=== PATIENT | female | born 1980 | race Caucasian/White ===

== ENCOUNTER 2018-02-05 17:23 | Emergency (ER) | payer SELFPAY ==
[~2018-02-05] VITALS: Ht 165.1 cm; Wt 59.0 kg
[2018-02-05 17:41] VITALS: BP 128/85
[2018-02-05 17:54] LABS: APPEARANCE,URINE CLEAR; BILIRUBIN, URINE NEGATIVE (NEGATIVE); COLOR,URINE PALE YELLOW; GLUCOSE, URINE (UA) NEGATIVE (NEGATIVE); KETONES,URINE NEGATIVE (NEGATIVE); LEUKOCYTE ESTERASE ,URINE NEGATIVE (NEGATIVE); NITRITE,URINE NEGATIVE (NEGATIVE); PH,URINE 8 (4.5-8.0); PROTEIN,URINE NEGATIVE (NEGATIVE); UROBILINOGEN,URINE NORMAL MG/DL (0.0-1.0)
[2018-02-05] MEDS ORDERED: Morphine Sulfate 10mg/ml Inj IVP ONE ×2 (18:00→20:30)
--- NOTE | 2018-02-05 18:01 | Emergency Room Report ---
History of Present Illness General Chief Complaint: Pain Source: Patient Present Illness HPI 37-year-old female presents to the emergency department complaining of 10 out of 10 in severity right upper quadrant pain progressive times one week. Patient reports hematuria and urinary frequency 3 days. Patient states that she usually gets UTIs often and they typically present with dysuria where she does not currently have dysuria. Patient denies nausea, vomiting. Patient reports significant tenderness to the right upper quadrant and right flank area as well. She reports history of uterine cancer with total hysterectomy. Patient states multiple types of cancer run in her family. Reports some recent weight loss denies night sweats. Denies vaginal d/c. Patient reports mild constipation denies diarrhea or blood in the stool. Patient denies melena. Denies CP, Palpitations, LOC, AMS, dizziness, or a sudden severe headache. Allergies: Coded Allergies: AMOXICILLIN (Verified Allergy, Unknown, Itching, 02/05/18) DOXYCYCLINE (Verified Allergy, Unknown, Anaphylaxis, 02/05/18) Patient History Past Medical History: see triage record Past Surgical History: other - total hysterectomy Pertinent Family History: other - cancer Last Menstrual Period: Hysterectomy 2011 Now: No Reviewed Nursing Documentation: PMH: Agreed; PSxH: Agreed Review of Systems All Other Systems: negative except mentioned in HPI Physical Exam Vital Signs Date Time Temp Pulse Resp B/P (MAP) Pulse Ox O2 Delivery O2 Flow Rate FiO2 02/05/18 17:31 98.5 96 16 128/85 98 Room Air 98.4 Sp02 EP Interpretation: reviewed, normal General Appearance: alert, GCS 15, non-toxic, moderate distress Head: normocephalic, atraumatic ENT: hearing grossly normal, normal voice Neck: full range of motion Respiratory: lungs clear, normal breath sounds, no respiratory distress, no wheezing, speaking full sentences Cardiovascular #1: regular rate, rhythm Gastrointestinal: normal bowel sounds, soft, tenderness - RUQ ttp. , other - TTP to right flank with Rigth CVA tenderness. Rectal: deferred Genitourinary: normal inspection, CVA tenderness (R) Musculoskeletal: back normal, gait/station normal, normal range of motion, tender - TTP to the right posterior ribcage area. Neurologic: alert, oriented x3, responsive, motor strength/tone normal, sensory intact, speech normal, grossly normal Psychiatric: judgement/insight normal Skin: normal color, no rash, warm/dry, well hydrated Medical Decision Making PA Attestation Dr. Lam is my supervising Physician whom patient management has been discussed with. Diagnostic Impression: Primary Impression: Abdominal pain Qualified Codes: R10.11 - Right upper quadrant pain Additional Impression: Kidney stone on right side ER Course 37-year-old female presents to the emergency department complaining of 10 out of 10 in severity right upper quadrant pain progressive times one week. Patient reports hematuria and urinary frequency 3 days. Patient states that she usually gets UTIs often and they typically present with dysuria where she does not currently have dysuria. Patient denies nausea, vomiting. Patient reports significant tenderness to the right upper quadrant and right flank area as well. She reports history of uterine cancer with total hysterectomy. Patient states multiple types of cancer run in her family. Reports some recent weight loss denies night sweats. Denies vaginal d/c. Patient reports mild constipation denies diarrhea or blood in the stool. Patient denies melena. Denies CP, Palpitations, LOC, AMS, dizziness, or a sudden severe headache. Ddx considered but are not limited to Diverticulitis, acute appy, diarrhea,UC, PUD, GE, pancreatitis, renal stone, gallstone Vital signs: are WNL, pt. is afebrile H&PE are most consistent with possible renal calculi, however due to amount and location of pain and tenderness will do more extensive work up to include CT imaging and lab work. ORDERS: -CBC, CMP, : elevated WBC's of 12.2, otherwise WNL -Lipase:WNL -224 -Amylase: 24 -UA: moderate occult blood and elevated 10-12 RBC's-- most indicative of stones -Hcg- negative ED INTERVENTIONS: -- 1000NS, - 6mg morphine IV x 2 -Zofran 4mg IV DISCHARGE: At this time pt. is stable for d/c to home. Will provide printed patient care instructions, and any necessary prescriptions. Care plan and follow up instructions have been discussed with the patient prior to discharge. Labs Test 02/05/18 17:40 02/05/18 18:20 Urine Color Pale yellow Urine Appearance Clear Urine pH 8 (4.5-8.0) Urine Specific [place] 1.010 (1.005-1.035) Urine Protein Negative (NEGATIVE) Urine Glucose (UA) Negative (NEGATIVE) Urine Ketones Negative (NEGATIVE) Urine Occult Blood 3+ (NEGATIVE) Urine Nitrite Negative (NEGATIVE) Urine Bilirubin Negative (NEGATIVE) Urine Urobilinogen Normal MG/DL (0.0-1.0) Urine Leukocyte Esterase Negative (NEGATIVE) Urine RBC 10-15 /HPF (0 - 2) Urine WBC 0-2 /HPF (0 - 2) Urine Squamous Epithelial Cells Moderate /LPF (NONE/OCC) Urine Amorphous Sediment Few /LPF (NONE) Urine Bacteria Few /HPF (NONE) Urine HCG, Qualitative Negative (NEGATIVE) White Blood Count 12.2 K/UL (4.8-10.8) Red Blood Count 4.53 M/UL (4.20-5.40) Hemoglobin 13.6 G/DL (12.0-16.0) Hematocrit 39.8 % (37.0-47.0) Mean Corpuscular Volume 88 FL (80-99) Mean Corpuscular Hemoglobin 30.0 PG (27.0-31.0) Mean Corpuscular Hemoglobin Concent 34.2 G/DL (32.0-36.0) Red Cell Distribution Width 11.4 % (11.6-14.8) Platelet Count 250 K/UL (150-450) Mean Platelet Volume 8.4 FL (6.5-10.1) Neutrophils (%) (Auto) 68.9 % (45.0-75.0) Lymphocytes (%) (Auto) 23.3 % (20.0-45.0) Monocytes (%) (Auto) 6.4 % (1.0-10.0) Eosinophils (%) (Auto) 0.5 % (0.0-3.0) Basophils (%) (Auto) 0.9 % (0.0-2.0) Sodium Level 142 MMOL/L (136-145) Potassium Level 3.9 MMOL/L (3.5-5.1) Chloride Level 105 MMOL/L (98-107) Carbon Dioxide Level 28 MMOL/L (21-32) Anion Gap 9 mmol/L (5-15) Blood Urea Nitrogen 13 mg/dL (7-18) Creatinine 0.7 MG/DL (0.55-1.30) Estimat Glomerular Filtration Rate > 60 mL/min (>60) Glucose Level 94 MG/DL (74-106) Calcium Level 9.4 MG/DL (8.5-10.1) Total Bilirubin 0.2 MG/DL (0.2-1.0) Aspartate Amino Transf (AST/SGOT) 13 U/L (15-37) Alanine Aminotransferase (ALT/SGPT) 26 U/L (12-78) Alkaline Phosphatase 52 U/L (46-116) Total Protein 7.7 G/DL (6.4-8.2) Albumin 4.3 G/DL (3.4-5.0) Globulin 3.4 g/dL Albumin/Globulin Ratio 1.3 (1.0-2.7) Amylase Level 45 U/L (25-115) Lipase 224 U/L (73-393) CT/MRI/US Diagnostic Results CT/MRI/US Diagnostic Results : Imaging Test Ordered: CT Abdomen & Pelvis with Contrast Impression " Probable hepatic cyst along the dome small subcentimeter. Gallbladder, pancreas and spleen are unremarkable. Bilateral symmetric renal enhancement no evidence of hydronephrosis or renal calculi no obstructing ureteral calculi. Bladder is unremarkable. Right ovarian follicle 1 cm left ovarian cysts. Scant amount of pelvic free fluid." Per official radiology report- Please see report for specific details. Last Vital Signs Date Time Temp Pulse Resp B/P (MAP) Pulse Ox O2 Delivery O2 Flow Rate FiO2 02/05/18 17:31 98.5 96 16 128/85 98 Room Air 98.4 Disposition: HOME, SELF-CARE Condition: Stable Scripts Tamsulosin Hcl (TAMSULOSIN HCL*) 0.4 Mg Cap.er.24h 0.4 MG ORAL BEDTIME, #2 CAP Prov: Helena Kimbrough 02/05/18 Phenazopyridine Hcl* (PYRIDIUM*) 200 Mg Tablet 200 MG ORAL THREE TIMES A DAY for 3 Days, #9 TAB 0 Refills Prov: Helena Kimbrough.ARichelle 02/05/18 Hydrocodone Bit/Acetaminophen 5-325* (NORCO 5-325*) 1 Each Tablet 1 TAB ORAL Q6H PRN for For Pain, #12 TAB 0 Refills Prov: Helena Kimbrough P.A. 02/05/18 Departure Forms: Return to Work Return to Work in (Days): 3 Return to Work Date: Feb 09, 2018 Work Restrictions: None Other Restrictions: May return sooner if symptoms resolve. Return to Full Activity: Feb 09, 2018 Patient Instructions: Kidney Stones Additional Instructions: Take medications as directed. Follow up with a Primary Care Provider in 3-5 days, even if your symptoms have resolved. --Please review list of primary care clinics, if you do not already have a primary care provider Return sooner to ED if new symptoms occur, or current symptoms become worse. Do not drink alcohol, drive, or operate heavy machinery while taking [place] as this may cause drowsiness. - Please note that this Emergency Department Report was dictated using [employer] nuclear medicine technology software, occasionally this can lead to erroneous entry secondary to interpretation by the dictation equipment. Helena Kimbrough Feb 05, 2018 18:01
[2018-02-05 18:58] VITALS: BP 124/85
[2018-02-05 19:03] LABS: BASOPHILS % (AUTO) 0.9 % (0.0-2.0); EOSINOPHILS % (AUTO) 0.5 % (0.0-3.0); HEMATOCRIT 39.8 % (37.0-47.0); HEMOGLOBIN 13.6 G/DL (12.0-16.0); LYMPHOCYTES % (AUTO) 23.3 % (20.0-45.0); MEAN CORPUSCULAR VOLUME 88 FL (80-99); MONOCYTES % (AUTO) 6.4 % (1.0-10.0); NEUTROPHILS % (AUTO) 68.9 % (45.0-75.0); PLATELET COUNT 250 K/UL (150-450); RED BLOOD COUNT 4.53 M/UL (4.20-5.40); RED CELL DISTRIBUTION WIDTH 11.4 % (11.6-14.8); WHITE BLOOD COUNT 12.2 K/UL (4.8-10.8)
[2018-02-05 19:09] LABS: ANION GAP 9 mmol/L (5-15); BLOOD UREA NITROGEN 13 mg/dL (7-18); CALCIUM 9.4 MG/DL (8.5-10.1); CARBON DIOXIDE 28 MMOL/L (21-32); CHLORIDE 105 MMOL/L (98-107); CREATININE 0.7 MG/DL (0.55-1.30); POTASSIUM 3.9 MMOL/L (3.5-5.1); SODIUM 142 MMOL/L (136-145)
[2018-02-05 19:14] LABS: ALANINE AMINOTRANSFERASE 26 U/L (12-78); ALBUMIN 4.3 G/DL (3.4-5.0); ALBUMIN/GLOBULIN RATIO 1.3 (1.0-2.7); ALKALINE PHOSPHATASE 52 U/L (46-116); AMYLASE 45 U/L (25-115); ASPARTATE AMINO TRANSFERASE 13 U/L (15-37); BILIRUBIN,TOTAL 0.2 MG/DL (0.2-1.0)
[2018-02-05 20:48] VITALS: BP 113/76
[2018-02-05] MEDS ORDERED: NORCO 5-325 TA1 EACH ORAL (21:09)
[2018-02-05] MEDS ORDERED: PHENAZOPYRIDIN200 MG ORAL (21:09)
[2018-02-05] MEDS ORDERED: TAMSULOSIN HCL0.4 MG ORAL (21:09)
[2018-02-05 21:20] VITALS: BP 113/76
--- NOTE | 2018-02-06 10:13 | Diagnostic Imaging Report ---
Clinical Indication: Right flank pain x1 week Technique: No oral contrast utilized, per emergency room physician request IV administration nonionic contrast. Venous phase spiral acquisition obtained through the abdomen and pelvis. Multiplanar reconstructions were generated. Total dose length product 648 mGycm. CTDIvol(s) 11 mGy. Dose reduction achieved using automated exposure control Comparison: none Findings: Somewhat prominent left ovary with 2 cysts, the largest measuring 3 cm in diameter. Uterus is surgically absent. What is probably a normal appendix is demonstrated. No evidence of diverticulosis or diverticulitis. No small bowel distention. There is equivocal trace free pelvic fluid. No intraperitoneal air The liver demonstrates a subcentimeter low-attenuation lesion in the dome, too small to characterize. The gallbladder is unremarkable. Bile ducts, pancreas, spleen, adrenals, kidneys are unremarkable. No retroperitoneal or mesenteric mass or adenopathy. Lung bases are clear. The bones are unremarkable Impression: No acute process 3 cm left ovarian cyst incidentally noted This agrees with the preliminary interpretation provided overnight by [facility] teleradiology service. The CT scanner at [facility] is accredited by the [employer] and the scans are performed using protocols designed to limit radiation exposure to as low as reasonably achievable to attain images of sufficient resolution adequate for diagnostic evaluation.
== END 2018-02-05 21:02 | disposition home or self-care (01) ==
LOC: EMR 18:10
DX: R10.11 Right upper quadrant pain (principal); N20.0 Calculus of kidney; N83.202 Unspecified ovarian cyst, left side; Z88.0 Allergy status to penicillin
CPT/HCPCS: 36415; 74177; 80053; 81003; 81025; 82150; 83690; 85025; 96361; 96374; 96375; 99284; J2270; J2405; Q9967

== ENCOUNTER 2018-02-08 11:52 | Emergency (ER) | payer SELFPAY ==
[~2018-02-08] VITALS: Ht 165.1 cm; Wt 59.0 kg
[~2018-02-08 11:52] MED LIST: NORCO 5-325 TA1 EACH ORAL; PHENAZOPYRIDIN200 MG ORAL; TAMSULOSIN HCL0.4 MG ORAL
--- NOTE | 2018-02-08 12:22 | Emergency Room Report ---
History of Present Illness General Chief Complaint: Female Urogenital Problems Source: Patient, Medical Record Present Illness HPI 37 yo female patient presents to ER complaining of dysuria and right flank pain. Patient reports seen in ER 3 days ago for similar symptoms, reports pain worsened since that time. Reports burning pain with urination now; states "I think I developed a UTI". Reports kidney stones and hx of PCOS. Complains of nausea. Denies vomiting. Denies recent sexual activity. Denies vaginal bleeding, vaginal discharge. Reports hx of hysterectomy secondary to uterine cancer 4 years ago; reports still has ovaries. Patient reports she has not had followup appointments since that time. Reports smokes cigarettes. Reports smoking half a pack since she was 10 years old. Denies recent weight loss. Denies fever, chest pain, SOB. Allergies: Coded Allergies: AMOXICILLIN (Verified Allergy, Unknown, Itching, 02/05/18) DOXYCYCLINE (Verified Allergy, Unknown, Anaphylaxis, 02/05/18) Patient History Past Medical History: see triage record Last Menstrual Period: hysterectomy years ago Now: No Reviewed Nursing Documentation: PMH: Agreed; PSxH: Agreed Nursing Documentation-PMH Past Medical History: No History, Except For Hx Cancer: Yes - Skin CA, Uterine CA Hx Gastrointestinal Problems: Yes - Hysterectomy, Polycystic ovarian disease Review of Systems All Other Systems: negative except mentioned in HPI Physical Exam Vital Signs Date Time Temp Pulse Resp B/P (MAP) Pulse Ox O2 Delivery O2 Flow Rate FiO2 02/08/18 12:13 88 20 118/62 97 Room Air Sp02 EP Interpretation: reviewed, normal General Appearance: well appearing, alert, GCS 15, non-toxic, mild distress Head: normocephalic, atraumatic Eyes: bilateral eye normal inspection, bilateral eye PERRL Neck: full range of motion Respiratory: lungs clear, normal breath sounds, no rhonchi, no respiratory distress, no accessory muscle use, no wheezing, speaking full sentences Cardiovascular #1: regular rate, rhythm, no edema Gastrointestinal: normal bowel sounds, soft, no mass, non-distended, no guarding, no rebound, tenderness - suprapubic, other - negative Rovsing, negative Biggs, negative obturator, negative pain with heel tap, negative psoas sign Genitourinary: no CVA tenderness Musculoskeletal: back normal, digits/nails normal, gait/station normal, normal range of motion, non-tender Neurologic: alert, oriented x3, responsive, motor strength/tone normal, sensory intact Psychiatric: mood/affect normal Skin: no rash Medical Decision Making PA Attestation Dr. Salomon is my supervising Physician whom patient management has been discussed with. Diagnostic Impression: Primary Impression: Hemorrhagic cyst of ovary ER Course Pt. presents to the ED c/o abdominal pain. Ddx considered but are not limited to UTI, cystitis, vaginitis, nephrolithiasis , ovarian torsion. Vital signs: are WNL, pt. is afebrile ORDERS: UA and pain medication. ER COURSE: Patient reports she does not want morphine, medication too strong for her, felt unwell the following day after use. Will provide [place] 5/325 for pain medication. Reviewed previous chart. CT shows no acute disease. UA results negative nitrite, negative leukocyte esterase, less RBCs from previous visit, no amorphous sediment. Ordered pelvic US. Patient reports improvement of symptoms with medication use. Patient requesting further pain medication. Will provide rx for [place]. Cures report shows Rx provided at previous [place] ER visit, no other opioid medications prescribed. Following completion of [place], take Tylenol and Ibuprofen for pain following completion of [place], can alternate taking each medication. US results show ovarian mass, likely hemorrhagic cyst, suggest six week followup. s/p hysterectomy. Results discussed with patient. Copy of report provided to patient. Instructed to followup with OBGYN for close outpatient followup due to hx of cancer. Does not require further treatment in ER at this time. Drink plenty of fluids. Don't smoke. Patient stable, nontoxic appearing, OK for discharge to home. DISCHARGE: Rx provided for Tylenol Rx provided for [place], #10 At this time pt. is stable for d/c to home. Patient resting comfortably, in no acute distress, nontoxic appearing, talking without difficulty. Rx provided to patient. Patient to take medications as instructed Will provide with patient care instructions and any necessary prescriptions. Care plan and follow-up instructions provided. Patient instructed to follow-up with primary care provider in 3 - 5 days. Patient questions asked and answered. Patient reports understanding and agreement to treatment plan. ER precautions given. Patient instructed to return to ER immediately for any new or worsening of symptoms including but not limited to increasing SOB, persistent fever, worsening of pain symptoms, intractable vomiting, blood in stool, urine, and/or emesis. Labs Test 02/08/18 12:30 Urine Color Pale yellow Urine Appearance Clear Urine pH 7 (4.5-8.0) Urine Specific [place] 1.010 (1.005-1.035) Urine Protein Negative (NEGATIVE) Urine Glucose (UA) Negative (NEGATIVE) Urine Ketones Negative (NEGATIVE) Urine Occult Blood 3+ (NEGATIVE) Urine Nitrite Negative (NEGATIVE) Urine Bilirubin Negative (NEGATIVE) Urine Urobilinogen Normal MG/DL (0.0-1.0) Urine Leukocyte Esterase Negative (NEGATIVE) Urine RBC 2-4 /HPF (0 - 2) Urine WBC 0-2 /HPF (0 - 2) Urine Squamous Epithelial Cells Few /LPF (NONE/OCC) Urine Bacteria Occasional /HPF (NONE) Urine Mucus Occasional /LPF CT/MRI/US Diagnostic Results CT/MRI/US Diagnostic Results : Imaging Test Ordered: pelvic US Impression 1.8 cm hypoechoic left ovarian mass likely a hemorrhagic cyst. Suggest six-week interval follow-up. Status post hysterectomy Last Vital Signs Date Time Temp Pulse Resp B/P (MAP) Pulse Ox O2 Delivery O2 Flow Rate FiO2 02/08/18 12:13 88 20 118/62 97 Room Air Disposition: HOME, SELF-CARE Condition: Stable Scripts Hydrocodone Bit/Acetaminophen 5-325* (NORCO 5-325*) 1 Each Tablet 1 TAB ORAL BID, #10 TAB 0 Refills Prov: Gadiel Sevilla 02/08/18 Acetaminophen* (TYLENOL EXTRA STRENGTH*) 500 Mg Tablet 500 MG ORAL Q8H PRN for Prn Headache/Temp > 101, #30 TAB 0 Refills Prov: Gadiel Sevilla 02/08/18 Patient Instructions: Ovarian Cyst, [id number] Additional Instructions: Followup with primary care provider for referral to OBGYN. Need close outpatient followup. Take medications as directed. Patient questions asked and answered. ER precautions given, patient instructed to return to ER immediately for any new or worsening of symptoms. Gadiel Sevilla Feb 08, 2018 12:22
[2018-02-08] MEDS ORDERED: Norco 5mg/325mg tab ORAL ONE (12:30)
[2018-02-08 13:02] LABS: APPEARANCE,URINE CLEAR; BILIRUBIN, URINE NEGATIVE (NEGATIVE); COLOR,URINE PALE YELLOW; GLUCOSE, URINE (UA) NEGATIVE (NEGATIVE); KETONES,URINE NEGATIVE (NEGATIVE); LEUKOCYTE ESTERASE ,URINE NEGATIVE (NEGATIVE); NITRITE,URINE NEGATIVE (NEGATIVE); PH,URINE 7 (4.5-8.0); PROTEIN,URINE NEGATIVE (NEGATIVE); UROBILINOGEN,URINE NORMAL MG/DL (0.0-1.0)
[2018-02-08] MEDS ORDERED: TYLENOL EXTRA500 MG ORAL (14:44)
[2018-02-08] MEDS ORDERED: Ketorolac 30mg Inj IM ONE (14:45)
[2018-02-08] MEDS ORDERED: NORCO 5-325 TA1 EACH ORAL (14:59)
--- NOTE | 2018-02-08 15:15 | Diagnostic Imaging Report ---
Indication:Lower abdominal and pelvic pain Technique: Grayscale and duplex Doppler imaging of the pelvis performed utilizing a transabdominal scan and endovaginal scan. Comparison: None Findings: The uterus is surgically absent. Both ovaries are present and show dopplerable blood flow. There are multiple follicles present within both ovaries. In the left ovary, there is a hypoechoic 1.8 cm lesion which may be a hemorrhagic cyst. During real-time scanning, the patient exhibited some tenderness in the left adnexal region. There is trace free fluid. The left ovary measures 3.5 x 4 x 2.5 cm. The right ovary is 3.1 x 2.5 x 1.8 cm. IMPRESSION: 1.8 cm hypoechoic left ovarian mass likely a hemorrhagic cyst. Suggest six-week interval follow-up. Status post hysterectomy
[2018-02-08 15:25] VITALS: BP 120/78
== END 2018-02-08 15:30 | disposition home or self-care (01) ==
LOC: EMR 12:40
DX: N83.202 Unspecified ovarian cyst, left side (principal); Z90.710 Acquired absence of both cervix and uterus
CPT/HCPCS: 76830; 76856; 81003; 99284; J1885